=== PATIENT | male | born 1970 | race Caucasian/White ===

== ENCOUNTER 2019-01-03 20:28 | Emergency (ER) | payer SELFPAY ==
[~2019-01-03] VITALS: Ht 167.6 cm; Wt 89.4 kg
[2019-01-03 20:51] VITALS: BP 136/85
--- NOTE | 2019-01-03 20:56 | NUR ---
Benoit barth in [facility] - 01/03/19 at 2057 by MARIA ESTHER PT TAKEN TO BED 5
--- NOTE | 2019-01-03 20:56 | NUR ---
PT AMBULATED TO BED 05.
--- NOTE | 2019-01-03 21:08 | NUR ---
Dr. Andrade examining patient.
--- NOTE | 2019-01-03 21:12 | NUR ---
48 Y/0 M PRESENTED TO ER C/O SHORTNESS OF BREATH SINCE TODAY. PT TOOK ALBUTEROL INHALER AT 2015, WITHOUT ANY RELIEF. PT PLACED IN HIGH FOWLERS POSITION. RESPIRATIONS ARE EVEN AND UNLABORED. BREATH SOUNDS WHEEZING HEARD THROUGHOUT. O2 SATURATION AT 96% ON RA. PT HAS PRODUCTIVE COUGH WITH THICK GREEN PHLEGM. PT PAIN LEVEL 8/10 WHEN COUGHING, PRESSURE PAIN. NKA. MED HX: ASTHMA. SAFETY MEASURES IN PLACE. ERMD AWARE OF PT STATUS.
[2019-01-03] MEDS ORDERED: ALBUTEROL SULFATE/IPRATROPIU 3 ML SOL IH ONE ×2 (21:25→22:40)
[2019-01-03] MEDS ORDERED: ACETAMINOPHEN 325 MG TAB PO ONE (21:25)
--- NOTE | 2019-01-03 21:30 | NUR ---
RT AT PT BEDSIDE
--- NOTE | 2019-01-03 22:00 | NUR ---
PER PT "I FEEL ALOT BETTER" RESPIRATIONS ARE EVEN AND UNLABORED. RESPIRATIONS 21. O2 SATURATION AT 95% ON RA. PT STILL HAS SLIGHT WHEEZING.
[2019-01-03] MEDS ORDERED: DEXAMETHASONE 10 MG/ML VIAL IM ONE (22:40)
--- NOTE | 2019-01-03 22:49 | NUR ---
PT AMBULATED TO RESTROOM
--- NOTE | 2019-01-03 22:57 | NUR ---
RT AT BEDSIDE
--- NOTE | 2019-01-03 23:35 | NUR ---
Dr. Andrade examining patient.
[2019-01-03 23:50] VITALS: BP 107/69
--- NOTE | 2019-01-03 23:50 | NUR ---
Patient discharged with v/s stable. Written and verbal after care instructions given and explained. Patient alert, oriented and verbalized understanding of instructions. Ambulatory with steady gait. All questions addressed prior to discharge. ID band removed. Patient advised to follow up with PMD. Rx of Albuterol 90mcg and Prednisone 50mg was given. Patient educated on indication of medication including possible reaction and side effects. Opportunity to ask questions provided and answered.
== END 2019-01-03 23:50 | disposition home or self-care (01) ==
LOC: MED 20:28
DX: J45.901 Unspecified asthma with (acute) exacerbation (principal); F17.210 Nicotine dependence, cigarettes, uncomplicated
CPT/HCPCS: 71045; 87804; 94640; 96372; 99284; J1100; J7620